=== PATIENT | male | born 1960 | race Caucasian/White ===

== ENCOUNTER 2017-11-23 18:17 | Emergency (ER) | payer OTHER ==
[2017-11-23] MEDS: IBUPROFEN 800 MG TABLET. PO (19:07)
== END 2017-11-23 20:08 | disposition home or self-care (01) ==
LOC: ER 18:17
DX: S20.219A Contusion of unspecified front wall of thorax, initial encounter (principal); M25.512 Pain in left shoulder; W11.XXXA Fall on and from ladder, initial encounter; Y93.89 Activity, other specified; Y92.89 Other specified places as the place of occurrence of the external cause; Y99.8 Other external cause status
CPT/HCPCS: 71101; 73030; 99284